=== PATIENT | female | born 1965 | race Caucasian/White ===

== ENCOUNTER → 2025-03-06 05:00 | Outpatient (REF) | payer MEDICAID, SELFPAY ==
[2025-03-06 08:42] LABS: Hematocrit 33.9 % (37-47); Hemoglobin 11.7 g/dL (12.0-15.0); Mean Corp Hgb Conc 34.5 g/dL (32-36); Mean Corpuscular Volume 91.4 fL (81-99); Mean Platelet Vol. 11.0 fl (6.2-12.0); Platelet Count 283 K/mm3 (150-450); RBC Distribution Width CV 13.9 % (11.6-14.6); RBC Distribution Width SD 47.0 fl (35.1-43.9); Red Blood Count 3.71 M/mm3 (4.2-5.4); White Blood Count 6.1 K/mm3 (4.4-11.0)
[2025-03-06 09:08] LABS: Cholesterol 175 mg/dL (<=200); Low Density Lipoprotein Calc. 105 mg/dL; Pro- Brain NATRIURETIC PEPTIDE 170 pg/mL (<=900); Triglycerides 112 mg/dL; Very Low Density Lipoprotein 22 mg/dL (5-40); Vitamin D,25 Hydroxy 13.3 ng/mL (30-100); cholesterol:hdl ratio screen 3.54
== END ==
LOC: OLS.ACW400 05:00
PROVIDERS: Visit Provider Family Medicine
DX: F03.90 Unspecified dementia, unspecified severity, without behavioral disturbance, psychotic disturbance, mood disturbance, and anxiety (principal); M62.81 Muscle weakness (generalized); R41.81 Age-related cognitive decline; R13.12 Dysphagia, oropharyngeal phase
CPT/HCPCS: 36415; 80061; 82306; 83036; 83880; 84443; 85027